=== PATIENT | male | born 1980 | race Caucasian/White ===

== ENCOUNTER 2016-06-03 16:39 | Emergency (ER) | payer OTHER ==
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
[~2016-06-03 16:39] MED LIST: ALLOPURINOL300 MG PO; AUGMENTIN PO; BACTRIM DS TABL1 TA1 PO; DICLOFENAC PO; FAMOTIDINE PO; FLEXERIL PO; INDOCIN SR75 MG PO; INDOMETHACIN25 MG PO; KEFLEX500 MG PO; ORUDIS75 M1 PO; VICODIN 5/1 TAB 5/50 PO; VICODIN 5/500 T1 TAB PO; ZYLOPRIM PO
== END 2016-06-03 18:32 | disposition home or self-care (01) ==
LOC: CFTX 16:39
DX: S59.902A Unspecified injury of left elbow, initial encounter (principal); G47.30 Sleep apnea, unspecified; W22.8XXA Striking against or struck by other objects, initial encounter
CPT/HCPCS: 29260; 73080; 73090; 96372; 99284; J1885

== ENCOUNTER 2016-11-28 09:32 | Emergency (ER) | payer OTHER ==
[~2016-11-28] VITALS: Ht 165.1 cm; Wt 117.9 kg
--- NOTE | ~2016-11-28 | EKG ---
PATIENT: PHILIPPE SUH UNIT #: [id number] Ventricular Rate: 75 BPM Atrial Rate: 75 BPM P-R Interval: 164 ms QRS Duration: 84 ms Q-T Interval: 378 ms QTC Calculation(Bezet): 422 ms P Ferriday: 23 degrees Calculated R Ferriday: -31 degrees Calculated T Ferriday: -8 degrees Diagnosis Line: Normal sinus rhythm Diagnosis Line: Left axis deviation Diagnosis Line: Abnormal ECG Diagnosis Line: When compared with ECG of 16-DEC-2009 18:36, Diagnosis Line: No significant change was found Diagnosis Line: Confirmed by TAI STEVENS MD ([id number]) on 11/28/2016 Diagnosis Line: 6:04:47 PM INTERPRETING MD: HILDA CHI
--- NOTE | ~2016-11-28 | CR72 ---
[facility] A Service of [facility] RADIOLOGY TEXT RESULTS PATIENT: PHILIPPE SUH LOCATION: [facility] : 78 UNIT #: [id number] AGE: [address]: Jesus Frias MD SEX: M ORDER DR: [id number] [facility] [address] [place], [place] [address] [id number] E MR#: [id number] Acc #: [id number] NAME: PHILIPPE SUH : 1980 SEX: M STUDY DATE/TIME: 11/28/2016 10:28 UNIT: [facility] ROOM: STUDY DESCRIPTION: CR Chest Single View Portable Attending Physician: Jesus Frias M.D. Ordering Physician: Jesus Frias M.D. Primary Care Physician: [facility] IMAGING REPORT This report is preliminary unless electronic signature is present EXAM Portable chest HISTORY Weakness, fatigue and shortness of air for 2 days. History of testicular cancer. FINDINGS A portable view of the chest was obtained. There is a comparison rib series and a PA chest from 03/03/2016. There is increased soft tissue density in the right medial inferior chest measuring about 7.0-8.0 cm in diameter. This is new from February 2016. The lungs are clear. The left cardiac border is normal. The bones are normal. The density in the right lower chest has a convex lateral margin. IMPRESSION There is increased soft tissue density in the right cardiophrenic angle which is new from 03/03/2016. This is up to 8.0 cm in diameter and while it might represent pericardial fat, other etiologies cannot be excluded. A CT scan of the chest with contrast is recommended. The lungs appear clear. The study is otherwise normal. Dictated by... Phoenix Yanez M.D. THIS IS AN ELECTRONICALLY VERIFIED REPORT Phoenix Yanez M.D. at 11/28/2016 1:43 PM Stephan TD: 11/28/2016 12:58 [facility] A Service of [facility] RADIOLOGY TEXT RESULTS PATIENT: PHILIPPE SUH [facility] #: [id number] : 76 UNIT #: [id number] AGE: [address]: Jesus Frias MD SEX: M ORDER DR: JOB #: [id number] MEDICAL IMAGING REPORT Page 1 of 1 COPY
--- NOTE | ~2016-11-28 | CT71 ---
[facility] A Service of [facility] RADIOLOGY TEXT RESULTS PATIENT: PHILIPPE SUH LOCATION: [facility] : 76 UNIT #: [id number] AGE: [address]: Jesus Frias MD SEX: M ORDER DR: [id number] [facility] [address] [place], [place] [address] [id number] E MR#: [id number] Acc #: [id number] NAME: PHILIPPE SUH. : 1980 SEX: M STUDY DATE/TIME: 11/28/2016 10:56 UNIT: [facility] ROOM: STUDY DESCRIPTION: CT Head Wo Contrast Attending Physician: Jesus Frias M.D. Ordering Physician: Jesus Frias M.D. Primary Care Physician: [facility] REPORT This report is preliminary unless electronic signature is present EXAM CT scan of the head without contrast INDICATION Weakness, sleeping a lot, increasing fatigue for 3 days with dizziness and tunnel vision. TECHNIQUE Axial noncontrast images were obtained from the skull base to the vertex. This CT exam was performed with one or more of the following radiation dose reduction techniques: automatic exposure control, adjustment of mA and/or kV according to patient size, and iterative reconstruction. FINDINGS Ventricular size and configuration are normal. There is no evidence of acute infarct or hemorrhage. There are no extraaxial fluid collections. No mass lesion or mass effect is seen. There are no skull fractures. IMPRESSION Normal noncontrast head CT. Dictated by... Phoenix Yanez M.D. THIS IS AN ELECTRONICALLY VERIFIED REPORT Phoenix Yanez M.D. at 11/28/2016 1:43 PM VU/shun TD: 11/28/2016 13:39 JOB #: [id number] [facility] A Service of [facility] RADIOLOGY TEXT RESULTS PATIENT: PHILIPPE SUH LOCATION: [facility] : 76 UNIT #: [id number] AGE: [address]: Jesus Frias MD SEX: M ORDER DR: MEDICAL IMAGING REPORT Page 1 of 1 COPY
[2016-11-28 11:16] LABS: BASOPHIL# 0.1 X10e3 (0-0.3); BASOPHIL% 0.9 % (0-2.5); EOSINOPHIL# 0.2 X10e3 (0-0.7); EOSINOPHIL% 2.4 % (0.0-7.0); HEMATOCRIT 41.7 % (38.0-50.0); HEMOGLOBIN 14.2 gm/dL (13.0-16.0); LYMPHOCYTE# 1.7 X10e3 (1.0-3.5); LYMPHOCYTE% 23.1 % (17.0-45.0); MEAN CELL VOLUME 88.6 FL (83-96); MEAN CORPUSCULAR HEMOGLOBIN 30.2 PG (28-34); MEAN CORPUSCULAR HGB CONC 34.1 g/dL (30-36); MEAN PLATELET VOLUME 9.3 FL (6.5-11.5); MONOCYTE# 0.6 X10e3 (0-1.0); MONOCYTE% 7.5 % (3.0-12.0); NEUTROPHIL% 66.1 % (40-75); PLATELET COUNT 264 X10e3 (140-420); RED BLOOD COUNT 4.71 X10e (3.90-5.60); RED CELL DISTRIBUTION WIDTH 13.3 % (11.0-15.5); WHITE BLOOD COUNT 7.6 X10e3 (4.0-10.5)
[2016-11-28 11:20] LABS: DIFF IND NO
[2016-11-28 11:39] LABS: ALBUMIN SERUM 3.8 g/dL (3.5-5.0); BILIRUBIN, DIRECT 0.2 mg/dL (0.0-0.2); BILIRUBIN,INDIRECT 0.9 mg/dL (0.0-0.9); BILIRUBIN,TOTAL 1.1 mg/dL (0.2-2.0); BUN/CREATININE RATIO 18.57; CALCIUM SERUM 8.9 mg/dL (8.4-10.2); CREATININE SERUM 0.7 mg/dL (0.6-1.4); GLOM FILT RATE Estimated 119.8 mL/min (>60); PROTEIN TOTAL SERUM 7.4 g/dL (6.0-8.3)
[2016-11-28 12:43] LABS: URINE SOURCE CLEAN CATCH
[2016-11-28 12:49] LABS: URINE APPEARANCE CLEAR; URINE BILIRUBIN NEG (NEG); URINE BLOOD NEG (NEG); URINE COLOR YELLOW; URINE GLUCOSE NEG (NEG); URINE KETONE NEG (NEG); URINE LEUKOCYTE ESTERASE TRACE (NEG); URINE NITRATE NEG (NEG); URINE PROTEIN NEG (NEG); URINE SPECIFIC GRAVITY 1.022 (1.003-1.035)
[2016-11-28 12:51] LABS: URBCS1 AUWI 0-2 /[HPF] (0-2); URINE BACTERIA AUWI NEG (NEGATIVE); URINE SQUAMOUS EPITHELIAL CELL OCC /[HPF]; UWBCS1 AUWI 0-2 (0-5)
[2016-11-28 13:01] LABS: CULTURE INDICATED? NO
[2016-11-28 13:05] LABS: URINE TRANSITIONAL EPI CELLS FEW /[HPF]
== END 2016-11-28 13:49 | disposition home or self-care (01) ==
LOC: CED 09:32
PROVIDERS: Emergency Medicine
DX: R53.83 Other fatigue (principal); E11.9 Type 2 diabetes mellitus without complications; M10.9 Gout, unspecified
CPT/HCPCS: 36415; 51701; 70450; 71010; 80048; 80076; 81003; 82947; 85025; 93005; 96360; 99284